=== PATIENT | male | born 1945 | race Hispanic/Latino ===

== ENCOUNTER 2022-01-18 03:51 | Day surgery (SDC) | payer MEDICARE, SELFPAY ==
[2022-01-03 10:49] VITALS: BMI 31.1
[2022-01-18 09:41] VITALS: BP 155/84; PULSE 100; RESP 20; TEMP 35.8; O2SAT 97
[2022-01-18 09:53] LABS: Glucose Point of Care 126 mg/dl (65-105)
[2022-01-18] MEDS: LACTATED RINGERS 1,000 ML 150 ML IV CONT (09:53)
--- NOTE | 2022-01-18 10:17 | P.PNAN_ITS ---
Anes - Initial Pre Proc Eval Procedure: Operation Date: 01/18/22 11:00 Proposed Procedures p Screening Colonoscopy - Rory Posada MD Date/Time: 01/18/22 10:17 Surgeon: Rory Posada MD Pre Op Diagnosis: hx of colon polyps Patient Data Age: 76 Gender: M Height: 1.57 m Weight: 73.8 kg Allergies Allergy/AdvReac Type Severity Reaction Status Date / Time No Known Allergies Allergy Verified 01/18/22 09:39 Home Medications Medication Instructions Recorded Confirmed Type sodium,potassium,mag sulfates 17.5 See Rx Instructions PO .COMPLEX 12/19/21 01/03/22 Rx gram-3.13 gram-1.6 gram oral soln #354 mL (Suprep Bowel Prep Kit) amlodipine 10 mg tablet 10 mg PO DAILY 01/03/22 01/03/22 History atorvastatin 10 mg tablet 10 mg PO DAILY 01/03/22 01/03/22 History benazepril 40 mg tablet 40 mg PO DAILY 01/03/22 01/03/22 History canagliflozin 300 mg tablet 300 mg PO DAILY 01/03/22 01/03/22 History (Invokana) hydrochlorothiazide 25 mg tablet 25 mg PO DAILY 01/03/22 01/03/22 History insulin detemir U-100 100 unit/mL 50 unit subcut DAILY 01/03/22 01/03/22 History (3 mL) subcutaneous pen (Levemir FlexTouch U-100 Insulin) metformin 500 mg tablet,extended 500 mg PO DAILY 01/03/22 01/03/22 History release 24 hr omega-3 acid ethyl esters 1 gram 1 g PO DAILY 01/03/22 01/03/22 History capsule pioglitazone 15 mg tablet 15 mg PO DAILY 01/03/22 01/03/22 History Laboratory Tests 01/18/22 09:45 POC Capillary Glucose 126 mg/dl H mg/dl (65-105) Patient hx anesthesia problems: none Family hx anesthesia problems: none Results Review: All pre-operative results and documents have been reviewed as part of the pre- operative evaluation. [facility] Social History Social History Smoking status: Former smoker Tobacco type: cigarettes Anes - Eval Final PreProcedure Day of Procedure 01/18/22 10:17 Patient weight: normal Heart: regular rate and rhythm Lungs: clear to auscultation Airway: Mallampati scale class II Neurological: alert and oriented Last oral intake: >/= 8 hours ASA classification: III Emergent: no Anesthetic plan: proceed Anesthesia type and monitoring: general GIVS and standard monitoring Results Review: All pre-operative results and documents have been reviewed as part of the pre- operative evaluation. Informed Consent: The patient's anesthetic plan and its attendant risks and benefits were discus sed with the patient/family/POA. Questions were solicited and answers provided to the satisfaction of the patient/family/POA.
--- NOTE | 2022-01-18 10:17 | PM.HPGS ---
History of Present Illness History of Present Illness Consent: Risks, benefits, and alternatives have been discussed and questions answered. Patient agrees to proceed with procedure. Chief complaint: hx of colon polyps Narrative: Ivan Neumann Sr. is a 76 year old male Presents for screening colonoscopy. Patient's current weight appetite and bowel movements are normal. Patient denies abdominal pain. He has had no bleeding. Family history noncontributory. Patient has a history of adenomatous colon polyp removed from the colon by colonoscopy in 2015. Review of Systems Review of Systems: Review of systems noncontributory. [facility] Social History Social History Smoking status: Former smoker Tobacco type: cigarettes Meds Home Medications and Allergies Home Medications Medication Instructions Recorded Confirmed Type sodium,potassium,mag sulfates 17.5 See Rx Instructions PO .COMPLEX 12/19/21 01/03/22 Rx gram-3.13 gram-1.6 gram oral soln #354 mL (Suprep Bowel Prep Kit) amlodipine 10 mg tablet 10 mg PO DAILY 01/03/22 01/03/22 History atorvastatin 10 mg tablet 10 mg PO DAILY 01/03/22 01/03/22 History benazepril 40 mg tablet 40 mg PO DAILY 01/03/22 01/03/22 History canagliflozin 300 mg tablet 300 mg PO DAILY 01/03/22 01/03/22 History (Invokana) hydrochlorothiazide 25 mg tablet 25 mg PO DAILY 01/03/22 01/03/22 History insulin detemir U-100 100 unit/mL 50 unit subcut DAILY 01/03/22 01/03/22 History (3 mL) subcutaneous pen (Levemir FlexTouch U-100 Insulin) metformin 500 mg tablet,extended 500 mg PO DAILY 01/03/22 01/03/22 History release 24 hr omega-3 acid ethyl esters 1 gram 1 g PO DAILY 01/03/22 01/03/22 History capsule pioglitazone 15 mg tablet 15 mg PO DAILY 01/03/22 01/03/22 History Allergies Allergy/AdvReac Type Severity Reaction Status Date / Time No Known Allergies Allergy Verified 01/18/22 09:39 Exam Narrative: Physical exam reveals patient be alert. Vital signs stable. HEENT exam is unremarkable. Patient is anicteric. Lungs are clear to auscultation and percussion. Heart is without murmur or extra sounds. Abdomen bowel sounds are present soft nontender with no hepatosplenomegaly. Digital external rectal exam is normal. Assessment and Plan Assessment and plan (1) History of colon polyps: Code(s): Z86.010 - Personal history of colonic polyps Status: Acute Assessment and Plan: Patient has a history of colon polyps. Plan is for surveillance colonoscopy now. Further recommendations will be given after endoscopy.
[2022-01-18 11:23] VITALS: BP 102/66; PULSE 68; RESP 23; O2SAT 92
[2022-01-18 11:33] VITALS: BP 125/80; PULSE 75; RESP 20; O2SAT 99
[2022-01-18 11:43] VITALS: BP 128/86; PULSE 73; RESP 19; O2SAT 99
[2022-01-18 11:48] LABS: Glucose Point of Care 101 mg/dl (65-105)
== END 2022-01-18 11:55 | disposition home or self-care (01) ==
PROVIDERS: PCP Physician Assistant; Visit Provider Internal Medicine Gastroenterology
PROC: 0DJD8ZZ Inspection of Lower Intestinal Tract, Via Natural or Artificial Opening Endoscopic (ICD-10-PCS; CPT 45378; principal; 2022-01-18 11:00)
DX: Z12.11 Encounter for screening for malignant neoplasm of colon (principal); K64.8 Other hemorrhoids; Z86.010 Personal history of colon polyps; Z79.4 Long term (current) use of insulin; Z79.84 Long term (current) use of oral hypoglycemic drugs; Z87.891 Personal history of nicotine dependence
CPT/HCPCS: G0105; 82948; J2704; J7120